=== PATIENT | female | born 1980 | race Caucasian/White ===

== ENCOUNTER 2021-07-20 22:50 | Emergency (ER) | payer MEDICAID ==
[~2021-07-20] VITALS: Ht 162.6 cm; Wt 73.0 kg
[2021-07-21] MEDS ORDERED: IBUP-2029 MT (01:09)
[2021-07-21] MEDS ORDERED: KETOROLAC 60MG/2ML VIAL IM ONE (01:15)
[2021-07-21 02:32] VITALS: BP 111/69
== END 2021-07-21 02:35 | disposition home or self-care (01) ==
LOC: ER 22:50
DX: U07.1 COVID-19 (principal)
CPT/HCPCS: 81025; 87426; 96372; 99283; J1885

== ENCOUNTER 2022-07-25 20:07 | Emergency (ER) | payer MEDICAID ==
[~2022-07-25] VITALS: Ht 162.6 cm; Wt 78.7 kg
[~2022-07-25 20:07] MED LIST: IBUP-2029 MT
[2022-07-25 22:55] VITALS: BP 121/87
[2022-07-25] MEDS ORDERED: ACET-2708 MT (22:55)
[2022-07-25] MEDS ORDERED: IBUP-2028 MT (22:55)
== END 2022-07-25 22:56 | disposition home or self-care (01) ==
LOC: ER 20:07
DX: B34.9 Viral infection, unspecified (principal); Z98.890 Other specified postprocedural states
CPT/HCPCS: 99281

== ENCOUNTER 2023-10-10 09:40 | Emergency (ER) | payer MEDICAID ==
[~2023-10-10] VITALS: Ht 167.6 cm; Wt 65.0 kg
[~2023-10-10 09:40] MED LIST changes: +ACET-2708 MT; +ASCO100T12 MT; +FERR325T6 MT; +IBUP-2028 MT
[2023-10-10 09:50] VITALS: O2SAT 100
[2023-10-10 10:50] LABS: CLARITY URINE BLOODY (CLEAR); COLOR URINE RED (YELLOW)
[2023-10-10 10:57] LABS: BASOPHILS % 0.8 % (0.0-2.0); EOSINOPHILS % 0.6 % (0.0-5.0); HEMOGLOBIN. 10.6 g/dL (12.0-16.0); LYMPHOCYTES % 17.8 % (20.0-50.0); MEAN CORPUSCULAR HEMOGLOBIN 27.2 pg (28.0-32.0); MEAN CORPUSCULAR VOLUME 84.9 fL (81.0-99.0); MEAN PLATELET VOLUME 8.1 fl (7.4-10.4); MONOCYTES % 8.1 % (2.0-8.0); NEUTROPHILS % 72.7 % (40.0-76.0); PLATELET 258 x1000/uL (130-400); RED BLOOD CELL COUNT 3.88 mill/uL (4.2-5.4); RED CELL DISTRIBUTION WIDTH 29.5 % (11.6-14.6); WHITE BLOOD COUNT 5.4 x1000/uL (4.5-11.0)
[2023-10-10 11:04] LABS: ADD RBC MORPHOLOGY YES; DIFFERENTIAL COMMENT 1
[2023-10-10 11:06] LABS: ALANINE AMINOTRANSFERASE 17 IU/L (10-49); ALBUMIN 4.1 g/dL (3.2-4.8); ASPARTATE AMINOTRANSFERASE 26 IU/L (<34); BILIRUBIN TOTAL 0.4 mg/dL (0.1-1.0); CALCIUM 8.6 mg/dL (8.7-10.4); CARBON DIOXIDE 24 mEq/L (21-32); CHLORIDE 106 mEq/L (98-107); CREATININE 0.7 mg/dL (0.6-1.0); GLUCOSE 93 mg/dL (70-105); POTASSIUM 4.1 mEq/L (3.5-5.1); PROTEIN TOTAL 7.1 g/dL (6.0-8.3); SODIUM 136 mEq/L (136-145); UREA NITROGEN BLOOD 13 mg/dL (9-23)
[2023-10-10 11:20] LABS: B-HCG QUANTITATIVE 2 mIU/mL (<3)
[2023-10-10 11:53] LABS: GLUCOSE URINE NEGATIVE (NEGATIVE); KETONES URINE TRACE (NEGATIVE); LEUKOCYTE ESTERASE URINE NEGATIVE (NEGATIVE); NITRITE URINE NEGATIVE (NEGATIVE); OCCULT BLOOD URINE 3+ (NEGATIVE); PROTEIN URINE 3+ (NEGATIVE); SPECIFIC GRAVITY URINE >1.030 (1.005-1.030); UROBILINOGEN URINE 0.2 E.U./dL (0.2-1.0)
[2023-10-10 12:04] LABS: ANISOCYTOSIS 3+; PLATELET ESTIMATE NORMAL
[2023-10-10 12:06] LABS: BACTERIA URINE NONE SEEN; RBC URINE TNTC /hpf (0-2); SQUAMOUS EPITHELIAL CELL URINE 1+ /lpf (RARE/1+); WBC URINE NONE SEEN /hpf (0-2)
[2023-10-10] MEDS ORDERED: IBUP-2029 MT (12:25)
[2023-10-10] MEDS: IBUPROFEN 600MG TABLET PO ONE (13:00)
[2023-10-10 14:00] VITALS: BP 126/78; PULSE 93; RESP 19; TEMP 98.5
== END 2023-10-10 14:42 | disposition home or self-care (01) ==
LOC: ER 09:50
DX: D25.9 Leiomyoma of uterus, unspecified (principal); D64.9 Anemia, unspecified; Z98.890 Other specified postprocedural states
CPT/HCPCS: 36415; 76830; 76856; 80053; 81003; 81025; 84702; 85025; 86850; 86900; 99284

== ENCOUNTER 2024-06-17 16:49 | Emergency (ER) | payer MEDICAID ==
[~2024-06-17] VITALS: Ht 162.6 cm; Wt 79.0 kg
[2024-06-17 17:13] VITALS: O2SAT 99
[2024-06-17 20:15] VITALS: BP 123/69; PULSE 68; RESP 16; TEMP 36.72516; O2SAT 99
== END 2024-06-17 20:15 | disposition home or self-care (01) ==
LOC: ER 16:49
DX: S80.12XA Contusion of left lower leg, initial encounter (principal); Z79.899 Other long term (current) drug therapy; X58.XXXA Exposure to other specified factors, initial encounter; Y93.89 Activity, other specified; Y92.89 Other specified places as the place of occurrence of the external cause; Y99.8 Other external cause status
CPT/HCPCS: 93971; 99284